=== PATIENT | female | born 1990 | race Two or more races ===

== ENCOUNTER → 2019-07-05 | Outpatient (CLI) | payer OTHER | END | disposition home or self-care (01) | LOC: PRENATAL 10:00 | DX: O99.89 Other specified diseases and conditions complicating pregnancy, childbirth and the puerperium (principal); O21.0 Mild hyperemesis gravidarum; O35.3XX0 Maternal care for (suspected) damage to fetus from viral disease in mother, not applicable or unspecified ==

== ENCOUNTER → 2019-12-04 | Outpatient (CLI) | payer OTHER | END | disposition home or self-care (01) | LOC: PRENATAL 10:29 | DX: O36.60X3 Maternal care for excessive fetal growth, unspecified trimester, fetus 3 (principal); O26.843 Uterine size-date discrepancy, third trimester; O36.8193 Decreased fetal movements, unspecified trimester, fetus 3; O35.3 Maternal care for (suspected) damage to fetus from viral disease in mother ==